=== PATIENT | female | born 1955 | race Caucasian/White ===

== ENCOUNTER 2016-11-12 16:20 | Emergency (ER) | payer OTHER ==
[2016-11-14] MEDS ORDERED: SYNTHROID100 MCG PO (13:34)
[2016-11-14] MEDS ORDERED: MOBIC7.5 MG PO (13:35)
[2016-11-14] MEDS ORDERED: INVOKANA300 MG PO (13:35)
[2016-11-14] MEDS ORDERED: GLUCOPHAGE1000 MG PO (13:35)
[2016-11-14] MEDS ORDERED: NEURONTIN 300300 MG PO (13:36)
[2016-11-14] MEDS ORDERED: LIPITOR20 MG PO (13:36)
[2016-11-14] MEDS ORDERED: VITAMIN D31000 UNIT PO (13:36)
[2016-11-14] MEDS ORDERED: NORCO 7.5/325 T1 TA1 PO (13:37)
[2016-11-14] MEDS ORDERED: ZOFRAN ODT4 MG/UDTAB PO (13:37)
[2016-11-15 10:10] VITALS: BMI 27.1
== END 2016-11-12 20:52 | disposition home or self-care (01) ==
LOC: D.ER 16:20
DX: S42.92XA Fracture of left shoulder girdle, part unspecified, initial encounter for closed fracture (principal); W01.0XXA Fall on same level from slipping, tripping and stumbling without subsequent striking against object, initial encounter; Y93.89 Activity, other specified; Y92.89 Other specified places as the place of occurrence of the external cause; E11.9 Type 2 diabetes mellitus without complications

== ENCOUNTER 2016-11-15 07:16 | Day surgery (SDC) | payer OTHER ==
[2016-11-14 16:46] LABS: HEMATOCRIT 45.6 % (36.0-48.0); HEMOGLOBIN 15.2 g/dL (12-16); MCH 30.5 pg (26.0-34.0); MCHC 33.3 g/dL (31.0-37.0); MCV 91.4 fL (80.0-100.0); MEAN PLATELET VOLUME 11.6 fL (7.4-10.4); RBC 4.99 10x6/uL (4.00-5.40); RDW 13.9 % (11.5-14.5); WBC 9.7 10x3/uL (4.8-10.8)
[2016-11-14 16:56] LABS: CALC OSMOLALITY 280 mosm/kg (275-300); CALCIUM 9.6 mg/dL (8.5-10.1); CARBON DIOXIDE 27.2 mmol/L (21.0-32.0); CHLORIDE - SERUM 102 mmol/L (98-107); CREATININE - SERUM 0.8 mg/dL (0.6-1.3); GLUCOSE 93 mg/dL (74-106); POTASSIUM - SERUM 4.1 mmol/L (3.5-5.1); SODIUM 140 mmol/L (136-145); UREA NITROGEN 17 mg/dL (7-18); eGFR NON AFRICAN AMERICAN 78 mL/min (90-120)
[~2016-11-15 07:16] MED LIST: GLUCOPHAGE1000 MG PO; INVOKANA300 MG PO; LIPITOR20 MG PO; MOBIC7.5 MG PO; NEURONTIN 300300 MG PO; NORCO 7.5/325 T1 TA1 PO; SYNTHROID100 MCG PO; VITAMIN D31000 UNIT PO; ZOFRAN ODT4 MG/UDTAB PO
[2016-11-15] MEDS ORDERED: HYDROCODONE-APA1 TAB PO (13:37)
== END 2016-11-15 15:20 | disposition home or self-care (01) ==
LOC: D.OPS 07:16
PROVIDERS: Anesthesiology
DX: S42.202A Unspecified fracture of upper end of left humerus, initial encounter for closed fracture (principal)

== ENCOUNTER 2018-05-03 23:58 | Inpatient (IN) | payer OTHER ==
[~2018-05-03] VITALS: Ht 160 cm; Wt 74.4 kg
--- NOTE | ~2018-05-03 | MORECARE ---
CASE MANAGEMENT DISCHARGE SUMMARY PATIENT: BASIA FREEMAN UNIT: [id number] ADM DATE: 05/04/18 AGE: 63 : 59 SEX: F ROOM/BED: D.9605 AUTHOR: JAZ HOLMAN PHYSICIAN: REFERRING PHYSICIAN: DHIRAJ GANDARA MD DATE OF SERVICE: 05/07/18 Discharge Plan Patient Name: BASIA FREEMAN Facility: [facility]:[place] : 1955 Planned Disposition: Home Anticipated Discharge Date: Discharge Date: Expected LOS: Initial Reviewer: [email or web address] Initial Review Date: 05/04/2018 Generated: 05/07/18 2:04 pm Comments DCP- Discharge Planning Updated by [email or web address]: Gabby Johnson on 05/07/18 12:[address] Patient Name: BASIA FREEMAN Admission Status: ER Accout number: [id number] Admission Date: 05-04-2018 : 1955 Admission Diagnosis:NONINFECTIVE GASTROENTERITIS AND COLITIS, UNSPECIFIED Attending: DHIRAJ GANDARA Current LOS: 3 Anticipated DC Date: Planned Disposition: Home Primary Insurance: [facility] Discharge Planning Comments: CM MET WITH KEE TO ASSESS DISCHARGE PLANNING NEEDS. PATIENT STATED THAT SHE IS INDEPENDENT WITH HER CARE AT HOME AND DENIES ANY NEEDS FROM A CM STANDPOINT. SHE HAS A GLUCOMTER. HER WILL BE THE ONE TO DRIVE HER HOME TODAY. SHE IS INDEPENDENT WITH HER CARE. CM WILL CONTINUE TO FOLLOW AND ASSIST NEEDED WITH DC PLANNING Reliability Technician: Gabby Johnson DCPIA - Discharge Planning Initial Assessment Updated by [email or web address]: Gabby Johnson on 05/07/18 1:00 pm * Is the patient Alert and Oriented? Yes * How many steps to enter\exit or inside your home? * PCP ALDADA * Pharmacy [facility] * Preadmission Environment Home with Family * ADLs Independent * Equipment Glucometer * List name and contact numbers for known caregivers / representatives who currently or will assist patient after discharge: DIEGO ( ) [phone] * Verbal permission to speak to the caregivers and representatives has been obtained from the patient. N/A * Community resources currently utilized None * Additional services required to return to the preadmission environment? No * Has this patient been hospitalized within the prior 30 days at any hospital? No Patient Name: BASIA FREEMAN Page [id number] at 1304 All edits/amendments must be made on the electronic document DICTATION DATE: 05/07/18 1304 ROVING HAND: LUBA 05/07/18 1304 RPT#: [id number] DC DATE: STATUS: ADM IN [facility] [address] [place] [address] END OF REPORT
--- NOTE | ~2018-05-03 | MORECARE ---
CASE MANAGEMENT DISCHARGE SUMMARY PATIENT: BASIA FREEMAN UNIT: [id number] ADM DATE: 05/04/18 AGE: 63 : 59 SEX: F ROOM/BED: D.7227 AUTHOR: JAZ HOLMAN PHYSICIAN: REFERRING PHYSICIAN: DHIRAJ GANDARA MD DATE OF SERVICE: 05/11/18 Discharge Plan Patient Name: BASIA FREEMAN Facility: [facility]:[place] : 1955 Planned Disposition: Home Anticipated Discharge Date: Discharge Date: 05/07/2018 Expected LOS: 0 Initial Reviewer: [email or web address] Initial Review Date: 05/04/2018 Generated: 05/11/18 9:08 am Comments DCP- Discharge Planning Updated by [email or web address]: Gabby Johnson on 05/07/18 12:[address] Patient Name: BASIA FREEMAN Admission Status: ER Accout number: [id number] Admission Date: 05-04-2018 : 1955 Admission Diagnosis:NONINFECTIVE GASTROENTERITIS AND COLITIS, UNSPECIFIED Attending: DHIRAJ GANDARA Current LOS: 3 Anticipated DC Date: Planned Disposition: Home Primary Insurance: [facility] Discharge Planning Comments: CM MET WITH PATINET TO ASSESS DISCHARGE PLANNING NEEDS. PATIENT STATED THAT SHE IS INDEPENDENT WITH HER CARE AT HOME AND DENIES ANY NEEDS FROM A CM STANDPOINT. SHE HAS A GLUCOMTER. HER WILL BE THE ONE TO DRIVE HER HOME TODAY. SHE IS INDEPENDENT WITH HER CARE. CM WILL CONTINUE TO FOLLOW AND ASSIST NEEDED WITH DC PLANNING Single Needle Tufting Machine Operator: Gabby Johnson DCPIA - Discharge Planning Initial Assessment Updated by [email or web address]: Gabby Johnson on 05/07/18 1:00 pm * Is the patient Alert and Oriented? Yes * How many steps to enter\exit or inside your home? * [facility]CP [facility] * Preadmission Environment Home with Family * ADLs Independent * Equipment Glucometer * List name and contact numbers for known caregivers / representatives who currently or will assist patient after discharge: DIEGO ( ) [phone] * Verbal permission to speak to the caregivers and representatives has been obtained from the patient. N/A * Community resources currently utilized None * Additional services required to return to the preadmission environment? No * Has this patient been hospitalized within the prior 30 days at any hospital? No Last DP export: 05/07/18 12:04 Patient Name: BASIA FREEMAN Page [id number] at 0808 All edits/amendments must be made on the electronic document DICTATION DATE: 05/11/18807 SOLUTION DESIGN AND ANALYSIS MANAGER: LUBA 05/11/18807 RPT#: [id number] DC DATE:05/07/18 STATUS: DIS IN [facility] [address] [place] [address] END OF REPORT
[~2018-05-03 23:58] MED LIST changes: +HYDROCODONE-APA1 TAB PO
[2018-05-04] VITALS (7 sets, daily range): BP systolic 100–121; BP diastolic 51–66; Ht 160 cm; Wt 74.4 kg
[2018-05-04] MEDS ORDERED: ALENDRONATE SOD70 MG PO (00:04)
[2018-05-04] MEDS ORDERED: SYNTHROID112 MCG PO (00:05)
[2018-05-04] MEDS ORDERED: GLIMEPIRIDE1 MG PO (00:05)
[2018-05-04] MEDS ORDERED: NAPROSYN500 MG PO (00:05)
[2018-05-04] MEDS ORDERED: LYRICA75 MG PO (00:05)
[2018-05-04] MEDS ORDERED: FISH OIL 1,0001 CA1 PO (00:06)
[2018-05-04 00:57] LABS: HEMATOCRIT 45.2 % (36.0-48.0); HEMOGLOBIN 15.4 g/dL (12-16); LYMPHOCYTES 8.2 % (15-50); MCH 29.3 pg (26.0-34.0); MCHC 34.1 g/dL (31.0-37.0); MCV 86.1 fL (80.0-100.0); MEAN PLATELET VOLUME 10.9 fL (7.4-10.4); NEUTROPHILS 83.4 % (40-80); PLATELET COUNT 189 10x3/uL (130-400); RBC 5.25 10x6/uL (4.00-5.40); RDW 14.4 % (11.5-14.5); WBC 7.4 10x3/uL (4.8-10.8)
[2018-05-04 01:09] LABS: ALBUMIN 3.4 g/dL (3.4-5.0); ANION GAP 18.7 mmol/L (8-16); BILIRUBIN - TOTAL 0.63 mg/dL (0.2-1.3); CALCIUM 8.8 mg/dL (8.5-10.1); CREATININE - SERUM 1.9 mg/dL (0.6-1.3); POTASSIUM - SERUM 3.7 mmol/L (3.5-5.1)
[2018-05-04 01:17] LABS: APPEARANCE TURBID (CLEAR); BILIRUBIN 2+ (NEGATIVE); COLOR DK YELLOW (YELLOW); GLUCOSE 500 mg/dL (NEGATIVE); KETONE NEGATIVE (NEGATIVE); NITRITE NEGATIVE (NEGATIVE); PROTEIN TRACE mg/dL (NEGATIVE); UROBILINOGEN NORMAL (NORMAL)
[2018-05-04 01:20] LABS: AMORPHOUS SEDIMENT >1+ /lpf (NONE SEEN); BACTERIA MANY /hpf (NONE SEEN); GRANULAR CAST 0-5 /lpf (NONE SEEN); HYALINE CAST OCC /lpf (NONE SEEN); RED CELLS - URINE OCC /hpf (0-5); WAXY CAST OCC /lpf (NONE SEEN)
[2018-05-04] MEDS ORDERED: CIPRO500 MG PO (01:24)
[2018-05-04 01:47] LABS: CARBON DIOXIDE 21.7 mmol/L (21.0-32.0)
[2018-05-04] MEDS ORDERED: JANUVIA100 MG PO (09:50)
[2018-05-05 04:11] VITALS: BP 102/36
[2018-05-05 05:48] LABS: BASOPHILS 0.1 % (0-2); EOSINOPHILS 0.6 % (0-7); HEMATOCRIT 37.6 % (36.0-48.0); HEMOGLOBIN 12.6 g/dL (12-16); IMMATURE GRANULOCYTES 0.6 % (0-5); LYMPHOCYTES 17.3 % (15-50); MCH 29.4 pg (26.0-34.0); MCHC 33.5 g/dL (31.0-37.0); MCV 87.9 fL (80.0-100.0); MEAN PLATELET VOLUME 10.7 fL (7.4-10.4); MONOCYTES 12.1 % (2-11); NEUTROPHILS 69.3 % (40-80); PLATELET COUNT 215 10x3/uL (130-400); RBC 4.28 10x6/uL (4.00-5.40); RDW 14.3 % (11.5-14.5); WBC 6.8 10x3/uL (4.8-10.8)
[2018-05-05 06:04] LABS: CALCIUM 7.2 mg/dL (8.5-10.1); CARBON DIOXIDE 22.6 mmol/L (21.0-32.0); CHLORIDE - SERUM 104 mmol/L (98-107); SODIUM 140 mmol/L (136-145)
[2018-05-05 06:10] LABS: CALC OSMOLALITY 277 mosm/kg (275-300); CREATININE - SERUM 0.7 mg/dL (0.6-1.3); GLUCOSE 65 mg/dL (74-106); UREA NITROGEN 15 mg/dL (7-18); eGFR NON AFRICAN AMERICAN 90 mL/min (90-120)
[2018-05-05 08:45] VITALS: BP 98/48
[2018-05-05 09:44] LABS: MAGNESIUM - SERUM 1.8 mg/dL (1.8-2.4); PHOSPHOROUS 2.3 mg/dL (2.5-4.9)
[2018-05-05 12:45] VITALS: BP 118/60
[2018-05-05 16:53] VITALS: BP 121/65
[2018-05-05 20:16] VITALS: BP 121/71
[2018-05-06 03:31] VITALS: BP 104/42
[2018-05-06 04:26] LABS: BASOPHILS 0.5 % (0-2); EOSINOPHILS 1.8 % (0-7); HEMATOCRIT 36.2 % (36.0-48.0); HEMOGLOBIN 12.1 g/dL (12-16); IMMATURE GRANULOCYTES 1.8 % (0-5); LYMPHOCYTES 23.9 % (15-50); MCH 29.3 pg (26.0-34.0); MCHC 33.4 g/dL (31.0-37.0); MCV 87.7 fL (80.0-100.0); MEAN PLATELET VOLUME 10.6 fL (7.4-10.4); MONOCYTES 11.9 % (2-11); NEUTROPHILS 60.1 % (40-80); PLATELET COUNT 245 10x3/uL (130-400); RBC 4.13 10x6/uL (4.00-5.40); RDW 14.4 % (11.5-14.5); WBC 6.1 10x3/uL (4.8-10.8)
[2018-05-06 04:45] LABS: ALBUMIN 2.4 g/dL (3.4-5.0); ALKALINE PHOSPHATASE 49 U/L (46-116); ALT (SGPT) 20 U/L (10-68); BILIRUBIN - TOTAL 0.24 mg/dL (0.2-1.3); CALC OSMOLALITY 282 mosm/kg (275-300); CALCIUM 7.4 mg/dL (8.5-10.1); CHLORIDE - SERUM 108 mmol/L (98-107); CREATININE - SERUM 0.6 mg/dL (0.6-1.3); GLUCOSE 82 mg/dL (74-106); POTASSIUM - SERUM 3.1 mmol/L (3.5-5.1); PROTEIN - SERUM 5.8 g/dL (6.4-8.2); SODIUM 143 mmol/L (136-145); eGFR NON AFRICAN AMERICAN > 90 mL/min (90-120)
[2018-05-06 04:48] LABS: UREA NITROGEN 11 mg/dL (7-18)
[2018-05-06 08:42] VITALS: BP 119/66
[2018-05-06 13:03] VITALS: BP 126/60
[2018-05-06 15:45] VITALS: BP 123/67
[2018-05-06 21:47] VITALS: BP 115/53
[2018-05-07 00:58] VITALS: BP 113/57
[2018-05-07 05:11] VITALS: BP 114/52
[2018-05-07 06:23] LABS: BASOPHILS 0.9 % (0-2); EOSINOPHILS 2.3 % (0-7); HEMATOCRIT 37.2 % (36.0-48.0); HEMOGLOBIN 12.3 g/dL (12-16); IMMATURE GRANULOCYTES 4.6 % (0-5); LYMPHOCYTES 25.4 % (15-50); MCH 29.1 pg (26.0-34.0); MCHC 33.1 g/dL (31.0-37.0); MCV 88.2 fL (80.0-100.0); MEAN PLATELET VOLUME 10.6 fL (7.4-10.4); MONOCYTES 10.2 % (2-11); NEUTROPHILS 56.6 % (40-80); PLATELET COUNT 287 10x3/uL (130-400); RBC 4.22 10x6/uL (4.00-5.40); RDW 14.5 % (11.5-14.5); WBC 6.9 10x3/uL (4.8-10.8)
[2018-05-07 06:56] LABS: ALBUMIN 2.6 g/dL (3.4-5.0); ALKALINE PHOSPHATASE 56 U/L (46-116); BILIRUBIN - TOTAL 0.24 mg/dL (0.2-1.3); CALC OSMOLALITY 281 mosm/kg (275-300); CALCIUM 7.6 mg/dL (8.5-10.1); CARBON DIOXIDE 24.4 mmol/L (21.0-32.0); CHLORIDE - SERUM 109 mmol/L (98-107); CREATININE - SERUM 0.7 mg/dL (0.6-1.3); GLUCOSE 103 mg/dL (74-106); POTASSIUM - SERUM 3.3 mmol/L (3.5-5.1); SODIUM 142 mmol/L (136-145); UREA NITROGEN 10 mg/dL (7-18); eGFR NON AFRICAN AMERICAN 90 mL/min (90-120)
[2018-05-07 06:59] LABS: ALT (SGPT) 26 U/L (10-68)
[2018-05-07 09:10] VITALS: BP 129/62
[2018-05-07] MEDS ORDERED: LEVAQUIN750 MG PO (12:13)
[2018-05-07] MEDS ORDERED: FLORAJEN3 CAPS460 MG PO (12:13)
[2018-05-07] MEDS ORDERED: Nicoderm [PBKC] TRANSDERM (12:14)
[2018-05-07 12:45] VITALS: BP 135/77
== END 2018-05-07 15:26 | disposition home or self-care (01) | DRG 372 ==
LOC: D.ER 23:58 → D.MS 05-04 03:03
PROVIDERS: Emergency Medicine
DX: A02.0 Salmonella enteritis (principal); N39.0 Urinary tract infection, site not specified; E86.0 Dehydration; E11.40 Type 2 diabetes mellitus with diabetic neuropathy, unspecified; Z79.84 Long term (current) use of oral hypoglycemic drugs; E03.9 Hypothyroidism, unspecified; B96.20 Unspecified Escherichia coli [E. coli] as the cause of diseases classified elsewhere